=== PATIENT | female | born 1980 | race Caucasian/White ===

== ENCOUNTER 2024-05-25 11:16 | Emergency (ER) | payer SELFPAY ==
[2024-05-25 11:21] VITALS: BP 118/75; PULSE 123; RESP 16; TEMP 36.7; O2SAT 98; BMI 18.3
--- NOTE | 2024-05-25 12:29 | US_ITS ---
WS: [id number] RIGHT UPPER QUADRANT ULTRASOUND HISTORY: ruq pain COMPARISON: None available. Liver: 15.6 cm in length. Normal size liver. Hyperechoic mass towards the diaphragmatic surface. This hyperechoic mass measures 0.9 x 0.9 x 1.1 cm. Exact location cannot be determined on the imaging sub mitted but this is probably hemangioma. No increased vascularity. No mass otherwise. Portal Vein: Normal hepatopetal flow with monophasic waveform. Gallbladder: Normally distended gallbladder with no stones or wall thickening. CBD: 0.2 cm Pancreas: Normal size and echogenicity. Right kidney: 8.4 cm in length. Low normal size kidney. There is also mild cortical thinning. Aorta and IVC: Unremarkable abdominal aorta and IVC. No ascites. US/US gall bladder [id number] IMPRESSION: 1. Normal gallbladder. 2. No bile duct dilatation. 3. Hyperechoic mass in the liver is probably hemangioma. 4. Low normal size RIGHT kidney.
[2024-05-25 12:55] LABS: Basophils # 0.1 10^3/uL (0.0-0.1); Basophils % 0.7 %; Eosinophils # 0.1 10^3/uL (0.0-0.8); Hematocrit 41.7 % (36-47); Lymphocytes # 1.5 10^3/uL (0.8-4.8); Lymphocytes % 14.2 %; Mean Corpuscular HGB Conc 32.4 g/dL (30-55); Mean Corpuscular Hemoglobin 28.7 pg (27-33); Mean Corpuscular Volume 88.7 fl (85-98); Mean Platelet Volume 9.9 fL (7.4-10.4); Monocytes # 0.8 10^3/uL (0.2-0.9); Monocytes % 7.9 %; Neutrophils # 7.99 10^3/uL (1.8-7.7); Neutrophils % 75.9 %; Nucleated Red Blood Cells % 0 %; Platelet Count 683 10^3/cmm (157-399); Red Cell Distribution Width 13.4 % (12.1-15.1); White Blood Count 10.51 10^3/uL (3.29-11.43)
[2024-05-25 13:12] LABS: HCG, Serum Qual Negative (Negative)
[2024-05-25 13:14] LABS: Alanine Aminotransferase < 5 U/L (0-33); Albumin Level 3.6 g/dL (3.5-5.2); Alkaline Phosphatase 117 U/L (35-105); Anion Gap 13.3 (5-19); Aspartate Amino Transferase 12 U/L (0-32); Blood Urea Nitrogen 11 mg/dL (6-20); Calcium 9.1 mg/dL (8.5-10.5); Carbon Dioxide 27 mmol/L (22-29); Chloride 99 mmol/L (98-107); Creatinine Clr Calc Pharmacy 89.1543; Globulin 4.7 g/dL (1.3-4.6); Glomerular Filtration Rate 107.6 mL/min (90-130); Glucose 125 mg/dL (65-115); Lipase 7 U/L (13-60); Osmolality Calculated 281 mOsm/kg (285-295); Potassium 4.3 mmol/L (3.5-5.1); Sodium 135 mmol/L (136-145); Total Bilirubin 0.4 mg/dL (0.15-1.2); Total Protein 8.3 g/dL (6.6-8.7)
--- NOTE | 2024-05-25 13:33 | W.ED.ABDPA2 ---
HPI - Abdominal Pain General: Chief Complaint: Abdominal Pain Stated Complaint: right side abd pain Time Seen by Provider: 05/25/24 12:24 Source: patient Mode of arrival: ambulatory Limitations: no limitations History of Present Illness: 44-year-old female states she has been having right upper quadrant abdominal pain for the last 4 days states pain sharp in nature is worse with movement when she coughs or palpation. She had some nausea denies any fever denies any vomiting or diarrhea no history of any abdominal surgeries. Associated Symptoms: Denies chills, diarrhea, fever(s), nausea and vomiting Related Data Date of Last Menstrual Period: 05/17/24 Previous Rx's Medication Instructions Recorded doxycycline hyclate 100 mg capsule 100 mg PO BID 10 days #20 caps 05/25/24 hydrocodone 5 mg-acetaminophen 325 1 tab PO Q6H PRN pain #14 tabs 05/25/24 mg tablet ondansetron 4 mg disintegrating 4 mg PO Q6H PRN nausea and 05/25/24 tablet vomiting #14 tabs Allergies Allergy/AdvReac Type Severity Reaction Status Date / Time No Known Allergies Allergy Verified 05/25/24 11:25 Review of Systems Const: Denies: fever(s), chills, body aches or change in appetite ENMT: Denies: throat pain or dental pain Card: Denies: chest pain Resp: Denies: dyspnea GI: Reports: abdominal pain; Denies: nausea, vomiting or diarrhea Musc: Denies: neck pain or back pain Skin/Breast: Denies: rash Neuro: Denies: headache(s) [facility] Female Reproductive History: Date of last menstrual period: 05/17/24 Physical Exam Const: COMMON NORMALS: no acute distress, patient oriented x3 and healthy appearing HENMT: COMMON NORMALS: normocephalic and atraumatic HEAD & SCALP: normocephalic and atraumatic Neck/C-Spine: COMMON NORMALS: full ROM and supple Chest: COMMONS NORMALS: normal inspection of the chest Resp: COMMON NORMALS: normal respiratory effort, No retractions, No use of accessory muscles and clear to auscultation bilaterally AUSCULTATION: clear to auscultation bilaterally Cardio: COMMON NORMALS: regular rate, regular rhythm and No murmurs present (Cardio) RATE: regular rate RHYTHM: regular rhythm GI: COMMON NORMALS: Normal to inspection, nondistended, normoactive bowel sounds present, Soft to palpation and no masses PALPATION: Yes Soft to palpation and Yes Tenderness to palpation present (GI) Details: RUQ : OTHER: No exam is normal no cervicitis no discharge noted no CMT Extremity: COMMON NORMALS: normal to inspection and full ROM Neuro: COMMON NORMALS: patient oriented x3, moves all extremities and no focal motor deficits Psych: COMMON NORMALS: mental status grossly normal, Normal thought process present and cooperative THOUGHT PROCESS: Normal thought process present Skin: COMMON NORMALS: no rashes or lesions noted and no wounds GENERAL SKIN EXAM: no rashes or lesions noted Course Vital Signs: Vital signs: Vital Signs Temperature 98.0 F 05/25/24 11:21 Pulse Rate 90 05/25/24 17:10 Respiratory Rate 16 05/25/24 17:10 Blood Pressure 118/81 05/25/24 17:10 Pulse Oximetry 100 05/25/24 17:10 Oxygen Delivery Me thod Room Air 05/25/24 11:21 MDM - Abdominal Pain Medical Decision Making Patient presents with upper abdominal pain she was found to have uterine fibroids on her CT along with some enhancement in her fallopian tubes. She is afebrile here no white count pelvic exam showed no discharge had no cervical motion tenderness I did speak to CATTLE DR[employer] Dr. Ricardo who will start patient on antibiotics he is going to follow-up with her in 2 to 4 days informed her she has fever or pain she is return to the ER she understands agrees to plan Medical Records I reviewed the patient's medical records. Lab Data I reviewed the patient's lab results. 05/25/24 12:40 05/25/24 12:40 Labs/Radiology: Radiology Impressions Gallbladder Ultrasound 05/25/24 12:29 IMPRESSION: 1. Normal gallbladder. 2. No bile duct dilatation. 3. Hyperechoic mass in the liver is probably hemangioma. 4. Low normal size RIGHT kidney. Chest X-Ray 05/25/24 13:35 Impression: No dense consolidation is identified. Abdomen/Pelvis CT 05/25/24 13:54 IMPRESSION: 1. Large lobulated heterogeneously enhancing uterus likely fibroid uterus. Largest suspected fibroid measures 3 to 4 cm. 2. Findings of pelvic inflammatory disease with dilated and heterogeneously enhancing fallopian tubes suspicious for salpingitis with possible developing tubo-ovarian abscess bilaterally. Pelvic ultrasound is pending. 3. Mild hepatomegaly with diffuse fatty filtration of the liver. 4. Appendix is not well visualized. 5. No other acute findings. Notified Tsering Huang MD at 05/25/2024 3:36 PM. Transvaginal US 05/25/24 15:27 IMPRESSION: 1. Markedly enlarged heterogeneous lobulated uterus with multiple large fibroids described above. Uterus is compressed and distorted due to the fibroids. 3 dominant fibroids visualized described above. 2. Complex LEFT adnexal mass measuring 4.5 x 2.9 cm with internal echogenic debris is indeterminant. Differential considerations include dilated fallopian tube with chronic debris or possibly pyosalpinx if infectious symptoms. Lobulated hemorrhagic cyst is an additional consideration. Cystic neoplasm difficult to exclude. 3. RIGHT adnexa not well evaluated due to shadowing bowel gas. RIGHT ovary not visualized. 4. Previously discussed CT findings suspicious for pelvic inflammatory disease. 5. Recommend FOOD AND BEVERAGE DIRECTOR consultation. Notified Dr. Huang at 05/25/2024 4:54 PM. Laboratory Results WBC 10.51 10^3/uL (3.29-11.43) 05/25/24 12:40 RBC 4.70 10^6/uL (3.85-5.65) 05/25/24 12:40 Hgb 13.50 g/dL (11.27-16.99) 05/25/24 12:40 Hct 41.7 % (36-47) 05/25/24 12:40 MCV 88.7 fl (85-98) 05/25/24 12:40 MCH 28.7 pg (27-33) 05/25/24 12:40 MCHC 32.4 g/dL (30-55) 05/25/24 12:40 RDW 13.4 % (12.1-15.1) 05/25/24 12:40 Plt Count 683 10^3/cmm (157-399) H 05/25/24 12:40 MPV 9.9 fL (7.4-10.4) 05/25/24 12:40 Neut % (Auto) 75.9 % 05/25/24 12:40 Lymph % (Auto) 14.2 % 05/25/24 12:40 [place] % (Auto) 7.9 % 05/25/24 12:40 Eos % (Auto) 1.0 % 05/25/24 12:40 Baso % (Auto) 0.7 % 05/25/24 12:40 Neut # (Auto) 7.99 10^3/uL (1.8-7.7) H 05/25/24 12:40 Lymph # (Auto) 1.5 10^3/uL (0.8-4.8) 05/25/24 12:40 [place] # (Auto) 0.8 10^3/uL (0.2-0.9) 05/25/24 12:40 Eos # (Auto) 0.1 10^3/uL (0.0-0.8) 05/25/24 12:40 Baso # (Auto) 0.1 10^3/uL (0.0-0.1) 05/25/24 12:40 Nucleated RBC % (auto) 0 % 05/25/24 12:40 Nucleated RBCs # 0.0 /100WBC 05/25/24 12:40 Sodium 135 mmol/L (136-145) L 05/25/24 12:40 Potassium 4.3 mmol/L (3.5-5.1) 05/25/24 12:40 Chloride 99 mmol/L (98-107) 05/25/24 12:40 Carbon Dioxide 27 mmol/L (22-29) 05/25/24 12:40 Anion Gap 13.3 (5-19) 05/25/24 12:40 BUN 11 mg/dL (6-20) 05/25/24 12:40 Creatinine 0.6 mg/dL (0.5-0.9) 05/25/24 12:40 GFR Calculation 107.6 mL/min (90-130) 05/25/24 12:40 Glucose 125 mg/dL (65-115) H 05/25/24 12:40 Calculated Osmolality 281 mOsm/kg (285-295) L 05/25/24 12:40 Calcium 9.1 mg/dL (8.5-10.5) 05/25/24 12:40 Total Bilirubin 0.4 mg/dL (0.15-1.2) 05/25/24 12:40 AST 12 U/L (0-32) 05/25/24 12:40 ALT < 5 U/L (0-33) 05/25/24 12:40 Alkaline Phosphatase 117 U/L (35-105) H 05/25/24 12:40 Total Protein 8.3 g/dL (6.6-8.7) 05/25/24 12:40 Albumin 3.6 g/dL (3.5-5.2) 05/25/24 12:40 Globulin 4.7 g/dL (1.3-4.6) H 05/25/24 12:40 Lipase 7 U/L (13-60) L 05/25/24 12:40 HCG, Qual Negative (Negative) 05/25/24 12:40 All radiology interpretation(s) finalized by discharge EKG Data EKG 1: I personally reviewed and interpreted this EKG as follows: EKG interpretation date: 05/25/24 EKG interpretation time: 13:42 Interpretation: nsr hr [address] elevation qrs 86 qtc 380 Discharge Plan Discharge Patient Disposition: Home Clinical Impression: Uterine fibroid Abdominal pain Qualifiers: Abdominal location: generalized Qualified Code(s): R10.84 - Generalized abdominal pain Condition: Stable Prescriptions: New hydrocodone-acetaminophen 5-325 mg tablet 1 tab PO Q6H PRN (Reason: pain) Qty: 14 0RF ondansetron 4 mg tablet,disintegrating 4 mg PO Q6H PRN (Reason: nausea and vomiting) Qty: 14 0RF doxycycline hyclate 100 mg capsule 100 mg PO BID 10 Days Qty: 20 0RF Discharge Orders: Discharge ED (Routine); Ordered 05/25/24 Ordered By: Tsering Huang Referrals: Tye Ricardo MD [Physician] - 1-3 days Discharge Diet: Advance as tolerated Discharge Activity: Resume usual activity Patient Instructions: Uterine Fibroids (ED), Abdominal Pain (ED), Opioid Safety Coding Level of Care Code ED Literature Teacher for Chg Demi
--- NOTE | 2024-05-25 13:34 | ECG_ITS ---
[facility] Test Date: 2024-05-25 Pat Name: Luli Jordan Department: Room: Gender: Female Shoe Packer: : 1980 Requested By: Tsering Huang Order Number: [id number] David MD: Prashant Farnsworth M.D. Measurements Intervals [place] Rate: 83 P: 65 [place]: 113 QRS: 72 QRSD: 86 T: 68 QT: 341 QTc: 401 Interpretive Statements SINUS RHYTHM WITH SHORT [place] INTERVAL WITH FREQUENT SUPRAVENTRICULAR PREMATURE COMPLEXES POSSIBLE RIGHT VENTRICULAR CONDUCTION DELAY [RSR (QR) IN V1/V2] No previous ECG available for comparison Electronically Signed On 05-25-2024 16:26:29 CDT by Prashant Farnsworth M.D. [email or web address]
--- NOTE | 2024-05-25 13:35 | XR_ITS ---
WS: [id number] Examination: XR chest 1V portable [id number] Reason for Exam: cough Date: May 25, 2024 Comparison: None. Findings: The heart is normal in size. The mediastinum not widened. There is no edema or large effusion. There is no dense consolidation. XR/XR chest 1V portable [id number] Impression: No dense consolidation is identified.
--- NOTE | 2024-05-25 13:54 | CT_ITS ---
WS: [id number] CT ABDOMEN PELVIS TECHNIQUE: Contrast-enhanced CT of the abdomen and pelvis with coronal and sagittal reformatted image s. CLINICAL INFORMATION: abd pain COMPARISON: None. DLP: 336.[address] scans at [facility] use at least one of these dose optimization techniques: automated e xposure control; mA and/or kV adjustment per patient size (includes targeted exams where dose is matc hed to clinical indication); or iterative reconstruction. FINDINGS: Markedly enlarged lobulated heterogeneously enhancing uterus with multiple heterogeneously enhancing masslike nodules most likely fibroids. Large suspected fibroids results in mass effect and displaceme nt of the uterus. In addition, evidence of pelvic inflammatory disease with diffuse heterogeneous enh ancement involving the adnexa and fallopian tubes bilaterally with suspected salpingitis and possibly developing tubo-ovarian abscesses. This could be further evaluated with pelvic ultrasound. Enhancing collections in both adnexa without well-defined ovary. Thickening and enhancement in the cervix susp icious for cervicitis. Mild hepatomegaly diffuse fatty infiltration of the liver. Small hepatic cyst. Tiny enhancing lesion in the undersurface RIGHT hepatic lobe likely represents incidental hemangioma measuring 6 mm. Normal portal vein and splenic vein. Normal spleen. Normal GE junction. Lung bases are well aerated. Adrenal glands are normal. Normal renal parenchymal enhancement. No hydr onephrosis. Normal pancreas. Normal caliber abdominal aorta. No evidence of high-grade small or large bowel obstruction. Appendix is not well visualized. CT/CT abdomen pelvis w con* [id number] IMPRESSION: 1. Large lobulated heterogeneously enhancing uterus likely fibroid uterus. Lar gest suspected fibroid measures 3 to 4 cm. 2. Findings of pelvic inflammatory disease with dilated and heterogeneously en hancing fallopian tubes suspicious for salpingitis with possible developing tub o-ovarian abscess bilaterally. Pelvic ultrasound is pending. 3. Mild hepatomegaly with diffuse fatty filtration of the liver. 4. Appendix is not well visualized. 5. No other acute findings. Notified Tsering Huang MD at 05/25/2024 3:36 PM.
[2024-05-25 14:22] VITALS: RESP 17; O2SAT 98
[2024-05-25] MEDS: morphine 4 mg/mL SDV 1 mL IVP (14:22)
[2024-05-25] MEDS: ondansetron 2 mg/ML SDV 2 mL 4 MG IVP (14:23)
[2024-05-25] MEDS: sodium chloride 0.9% 1,000 ML 999 ML IV (14:35)
[2024-05-25] MEDS: iohexol 350 mg/mL 500 mL Btl (per mL) IV (14:40)
[2024-05-25 15:00] VITALS: O2SAT 98
--- NOTE | 2024-05-25 15:27 | US_ITS ---
WS: [id number] ULTRASOUND PELVIS TECHNIQUE: Transvaginal. CLINICAL INFORMATION: abnormal CT findings LMP:? :? COMPARISON: CT earlier today FINDINGS: Enlarged heterogeneous lobulated uterus Orientation: Anteverted. Size: 9.1 x 4.7 x 4.1 cm Masses: Multiple large uterine fibroids as also seen on the CT. 3 dominant fibroids visualized. Large st fibroids measure approximately 4.9 x 4.0 cm, 3.8 x 3.5 cm, and 4.4 x 3.4 cm. Endometrium thickness: 7 mm. Adnexa: RIGHT ovary and adnexa not visualized due to bowel shadowing. Definite LEFT ovary not visualized. There is a cystic dilated structure in the LEFT adnexa measuring 4.5 x 2.9 cm with internal nodularity and echogenic debris. This may represent a dilated fallopian t ube with chronic debris or pyosalpinx. Recommend correlation for infection and history of PID. Lobula baldev hemorrhagic cyst is an additional consideration. Cystic neoplasm difficult to exclude. Free fluid: Trace Other findings: None. US/US transvaginal [id number] IMPRESSION: 1. Markedly enlarged heterogeneous lobulated uterus with multiple large fibroi ds described above. Uterus is compressed and distorted due to the fibroids. 3 d ominant fibroids visualized described above. 2. Complex LEFT adnexal mass measuring 4.5 x 2.9 cm with internal echogenic de bris is indeterminant. Differential considerations include dilated fallopian tu be with chronic debris or possibly pyosalpinx if infectious symptoms. Lobulated hemorrhagic cyst is an additional consideration. Cystic neoplasm difficult to exclude. 3. RIGHT adnexa not well evaluated due to shadowing bowel gas. RIGHT ovary not visualized. 4. Previously discussed CT findings suspicious for pelvic inflammatory disease . 5. Recommend FRONT DESK SUPERVISOR consultation. Notified Dr. Huang at 05/25/2024 4:54 PM.
[2024-05-25 15:30] VITALS: O2SAT 91
[2024-05-25 17:10] VITALS: BP 118/81; PULSE 90; RESP 16; O2SAT 100
[2024-05-25] MEDS: cefTRIAXone 1,000 mg SDV 1000 MG IVP (17:17)
[2024-05-25 17:25] LABS: Charge for UA Resulting for Rev
[2024-05-25 17:37] LABS: Bilirubin Urine Negative (Negative); Blood Urine Negative (Negative); Glucose Urine UA Negative (Normal); Ketones Urine Negative (Negative); Leukocyte Esterase Urine Negative (Negative); Nitrate Urine Negative (Negative); Protein Urine Negative (Negative); Urine Appearance Clear (CLEAR); Urine Color Yellow (Yellow)
[2024-05-25 17:42] LABS: Bacteria Urine None Seen /hpf; Hyaline Casts Urine 0-4 /lpf; RBC Urine 0-2 /hpf (0-2); Squamous Epithelial Cell Urine 0-5 /hpf (0-5); WBC Urine 0-5 /hpf (0-5)
[2024-05-25 17:46] LABS: Specific Gravity, Urine 1.078 (1.005-1.030)
[2024-05-25 17:47] LABS: Add Urine Culture? No
--- NOTE | 2024-05-26 07:29 | DCPLANNER ---
messaged [facility] for er f/u
== END 2024-05-25 17:38 | disposition home or self-care (01) ==
PROVIDERS: Physician Assistant; Emergency Provider Emergency Medicine
DX: R10.84 Generalized abdominal pain (principal); D25.9 Leiomyoma of uterus, unspecified
CPT/HCPCS: 36415; 71045; 74177; 76705; 76830; 80053; 81003; 81015; 83690; 84703; 85025; 93005; 96361; 96374; 96375; 99285; J0696; J2270; J2405; J7030; Q9967